=== PATIENT | female | born 1975 | race Caucasian/White ===

== ENCOUNTER 2021-03-30 09:45 | Outpatient (CLI) | payer BC, SELFPAY ==
--- NOTE | ~2021-03-30 | MR_ITS ---
EXAMINATION: MR knee LT wo con DATE: 03/30/2021 10:58 INDICATION: Posttraumatic left knee pain TECHNIQUE: Magnetic resonance imaging (MRI) of the left knee was performed without intravenous contra st. Sequences included coronal PD-weighted FSE, coronal PD-weighted FS FSE, sagittal T2-weighted FSE , sagittal PD-weighted FS FSE and axial PD weighted fat saturated FSE. COMPARISON: None. FINDINGS: Medial compartment: Medial meniscus is normal. Articular cartilage is normal. Lateral compartment: Lateral meniscus is normal. Articular cartilage is normal. Patellofemoral compartment: Articular cartilage is normal. Ligaments and tendons: Complete tear of the anterior cruciate ligament. The posterior cruciate ligament is normal. There is mild thickening and increased signal at the proximal fibular collateral ligament with mild surroundin g edema consistent with low to moderate grade sprain. The medial collateral ligamentous complex. The extensor mechanism is normal. The visualized medial and lateral hamstring tendons as well as the ilio tibial band are normal. Fluid: Physiologic amount of fluid in the joint space. No loose osteochondral bodies identified. Osseous/other: There is marrow edema surrounding a low signal intensity subarticular impaction fracture line underly ing the posterior margin of the medial tibial plateau. Additional marrow edema along the posterior ri m of the lateral tibial plateau without a definitive fracture line consistent with bone contusion. Pa ttern of bone injuries is consistent with an anterior tibial subluxation injury occurring in conjunct ion with the anterior cruciate ligament tear. Bone marrow signal is otherwise normal. No pathologic m arrow replacing process. IMPRESSION: 1. Complete tear of the anterior cruciate ligament. 2. Low to moderate grade sprain of the proximal fibular collateral ligament. 3. Bone contusion along the posterior margin of the lateral tibial plateau and nondisplaced reticular impaction fracture along the posterior rim of the medial tibial plateau. Reviewed, dictated and finalized at location A.
== END 2021-03-30 09:46 | disposition home or self-care (01) ==
DX: S83.512A Sprain of anterior cruciate ligament of left knee, initial encounter (principal); S80.12XA Contusion of left lower leg, initial encounter
CPT/HCPCS: 73721

== ENCOUNTER 2021-10-26 14:37 | Outpatient (CLI) | payer BC, SELFPAY ==
--- NOTE | ~2021-10-26 | US_ITS ---
EXAMINATION: US pelvic complete w TV DATE: 10/26/2021 15:19 INDICATION: Abnormal uterine bleeding Comparison:No prior studies for comparison. TECHNIQUE: Multiple transabdominal and endovaginal sonographic images of the pelvis performed. FINDINGS: The uterus measures 8.7 x 3.9 x 5.1 cm. The endometrial complex is thickened and heterogene ous measuring 12 mm. The right ovary measures 2.5 x 1.9 x 2.3 cm and the left ovary measures 3.4 x 2.6 x 3 cm. There are small follicles in each ovary. Normal doppler signal in both ovaries. There is no free fluid in the pelvis. There are no abnormal masses seen on either side. IMPRESSION: 1. Thickened heterogeneous endometrium measuring 1.2 cm. Reviewed, dictated and finalized at location B. T SPECIALIST
== END 2021-10-26 14:38 ==
PROVIDERS: Visit Provider Nurse Practitioner
DX: N93.8 Other specified abnormal uterine and vaginal bleeding (principal)
CPT/HCPCS: 76830; 76856

== ENCOUNTER → 2021-12-15 14:57 | Outpatient (CLI) | payer BC, SELFPAY ==
--- NOTE | ~2021-12-15 | MM_ITS ---
EXAMINATION: MM screening apryl BI w yeyo HISTORY: Screening mammogram TECHNIQUE: Craniocaudal and mediolateral oblique 3-D tomosynthesis images were obtained and synthetic 2-D images were generated. CAD analysis was submitted and interpreted. COMPARISON: None, baseline BREAST PARENCHYMAL COMPOSITION: There are scattered areas of fibroglandular density. FINDINGS: There is no suspicious mass, calcification, or architectural distortion to suggest malignan cy in either breast. IMPRESSION: 1. No mammographic evidence of malignancy. 2. Recommend routine screening mammography in one year. BI-RADS Category 1: Negative Reviewed, dictated and finalized at location A.
== END ==
PROVIDERS: Visit Provider Nurse Practitioner
DX: Z12.31 Encounter for screening mammogram for malignant neoplasm of breast (principal)
CPT/HCPCS: 77063; 77067